=== PATIENT | male | born 1960 | race Caucasian/White ===

== ENCOUNTER → 2019-02-03 | Outpatient (CLI) | payer OTHER ==
[2019-02-03 10:27] VITALS: BP_SYST 131; BP_SYST 144; BP_DIAS 87; BP_DIAS 89
--- NOTE | 2019-02-03 10:27 | NUR ---
[facility] PT ARRIVED TO [facility] FOR CT ABD/PELVIS WITH IV CONTRAST. V/S OBTAINED. 0 DISTRESS
--- NOTE | 2019-02-03 12:15 | NUR ---
IV removal IV DC'd with sterile technique, catheter fully intact. Pressure dressing applied to site. Patient tolerated procedure well. Discharged with aftercare instructions per MD. NOTE:
[2019-02-03 12:20] VITALS: BP 131/89
--- NOTE | 2019-02-03 12:20 | NUR ---
IV insertion IV access obtained, via clean sterile technique by inserting 20 gauge catheter at after attempt(s). IV secured properly. No trauma to site. Patient tolerated procedure well. Addendum: 02/03/19 at 1348 by BLADIMIR MOREIRA RN RN [place] IV INSERTED AT 1100
--- NOTE | 2019-02-03 12:20 | NUR ---
Discharge Instructions See e-MAR for any mediations given with this visit. Patient education given on disease process. Patient verbalized understanding. Previous labs reviewed. Patient discharged in stable condition with after care instructions and follow up appointment.
== END | disposition home or self-care (01) ==
LOC: Rad HDHVI 10:20
PROVIDERS: ATTEND Internal Medicine Cardiovascular Disease
DX: K57.10 Diverticulosis of small intestine without perforation or abscess without bleeding (principal); K57.30 Diverticulosis of large intestine without perforation or abscess without bleeding; R94.4 Abnormal results of kidney function studies; G45.9 Transient cerebral ischemic attack, unspecified; I10 Essential (primary) hypertension; N26.1 Atrophy of kidney (terminal); N20.0 Calculus of kidney; N20.1 Calculus of ureter; R91.1 Solitary pulmonary nodule; I70.90 Unspecified atherosclerosis
CPT/HCPCS: 36415; 74175; 82565; 93880; G0463

== ENCOUNTER → 2019-02-12 | Outpatient (CLI) | payer OTHER ==
[~2019-02-12] VITALS: Ht 193 cm; Wt 96.2 kg
== END | disposition home or self-care (01) ==
LOC: Rad HDHVI 08:50
PROVIDERS: ATTEND Internal Medicine Cardiovascular Disease
DX: I34.0 Nonrheumatic mitral (valve) insufficiency (principal); N20.0 Calculus of kidney; G45.9 Transient cerebral ischemic attack, unspecified; R41.0 Disorientation, unspecified; R06.02 Shortness of breath; I10 Essential (primary) hypertension
CPT/HCPCS: 78452; 93017; 93306; 96374; A9500